=== PATIENT | male | born 1960 | race Caucasian/White ===

== ENCOUNTER → 2017-07-30 | Outpatient (CLI) | payer OTHER ==
[2016-06-28 12:22] VITALS: BMI 31.6
[~2017-07-30] MED LIST: ALB18R INH; ASPI81TA94 PO; ATOR10TA65 PO; BLOO-784 MC; DIPH0.5D12 IM; DOCU-416 PO; FLUT16SP19 NS; FLUT1DIS29 IH; GLIP-152 PO; LISI-351 PO; LISI-362 PO; LORA-629 PO; LOSA-57 PO; LOSA50TA72 PO; METF-410 PO; MONT10TA4 PO; NEED1DIS64 MC; OXYC-854 PO; PNEI IM; PRED-1 PO; TOBR5DRO43 OD; [UNRECOGNIZED DRUG - CODE] NS
== END ==
LOC: LAB 11:14
PROVIDERS: ATTEND Nurse Practitioner Family
DX: Z12.5 Encounter for screening for malignant neoplasm of prostate (principal); E11.9 Type 2 diabetes mellitus without complications; E78.5 Hyperlipidemia, unspecified; I10 Essential (primary) hypertension
CPT/HCPCS: 36415; 82040; 82247; 82310; 82374; 82435; 82565; 82947; 83036; 84075; 84132; 84153; 84155; 84295; 84443; 84450; 84460; 84520

== ENCOUNTER → 2018-01-13 | Outpatient (CLI) | payer OTHER ==
[2016-06-28 12:22] VITALS: BMI 31.6
[~2018-01-13] MED LIST changes: +AMLO-96 PO; +AMLO-99 PO; +CAR6.25 PO; +GLIM1TAB25 PO; +LOSA-54 PO; -METF-410 PO; +METF-411 PO
== END ==
LOC: RESP 19:38
PROVIDERS: ATTEND Nurse Practitioner Family
DX: G47.33 Obstructive sleep apnea (adult) (pediatric) (principal); G47.36 Sleep related hypoventilation in conditions classified elsewhere

== ENCOUNTER → 2018-01-26 | Outpatient (CLI) | payer OTHER ==
[2016-06-28 12:22] VITALS: BMI 31.6
[~2018-01-26] MED LIST changes: +OXYGENHOME INH
[2018-01-26 09:46] LABS: PLATELET COUNT, AUTOMATED 272 K/uL (150-450)
[2018-01-26 10:55] LABS: LDL CHOLESTEROL 55 mg/dl
== END ==
LOC: LAB 07:47
PROVIDERS: ATTEND Nurse Practitioner Family
DX: E11.65 Type 2 diabetes mellitus with hyperglycemia (principal); E78.5 Hyperlipidemia, unspecified; I10 Essential (primary) hypertension
CPT/HCPCS: 36415; 82040; 82247; 82310; 82374; 82435; 82465; 82565; 82947; 83036; 83718; 84075; 84132; 84155; 84295; 84443; 84450; 84460; 84478; 84520; 85025

== ENCOUNTER → 2018-08-04 | Outpatient (CLI) | payer OTHER ==
[2016-06-28 12:22] VITALS: BMI 31.6
[~2018-08-04] MED LIST changes: +AMLO-111 PO; +AMLO-113 PO; -AMLO-96 PO; -AMLO-99 PO; -LOSA50TA72 PO; +LOSA50TA80 PO; -METF-411 PO; +METF-450 PO; +PNEI IJ
== END ==
LOC: LAB 07:21
PROVIDERS: ATTEND Nurse Practitioner Family
DX: E11.9 Type 2 diabetes mellitus without complications (principal); I10 Essential (primary) hypertension
CPT/HCPCS: 36415; 82040; 82247; 82310; 82374; 82435; 82565; 82947; 83036; 84075; 84132; 84155; 84295; 84450; 84460; 84520

== ENCOUNTER 2018-12-11 08:18 | Emergency (ER) | payer OTHER ==
[2016-06-28 12:22] VITALS: Wt 97.5 kg
[~2018-12-11 08:18] MED LIST changes: -AMLO-111 PO; -AMLO-113 PO; +AMLO-125 PO; +AMLO-127 PO; -DIPH0.5D12 IM; +DIPH0.5S2 IM
--- NOTE | 2018-12-11 08:32 | ER Report ---
History and Physical Time Seen By MD: 08:25 Hx. of Stated Complaint: PATIENT REPORTS LOW BACK PAIN FOR 2 WEEKS. WORSE ON THE LEFT SIDE WITH NUMBNESS AND TINGLING HPI/ROS CHIEF COMPLAINT: Left-sided back and leg pain HISTORY OF PRESENT ILLNESS: Patient is a 58-year-old male who presents emergent department complaining of lower back pain that is worse with movement with radiation and numbness down the back of the left leg. Patient has a history of prior herniated lumbar disks. He has performed physical therapy in the past with improvement of symptoms. He states over the last 2 weeks however his symptoms have worsened. At work yesterday he states he had to sit down multiple times s econdary to pain. He has been treating his pain with ibuprofen with minimal effect. Patient denies any saddle anesthesia denies any burning or difficulty with urination. Denies blood in his urine. Denies any retention or incontinence of urine or stool. REVIEW OF SYSTEMS: Respiratory: No cough, no dyspnea. Cardiovascular: No chest pain, no palpitations. Gastrointestinal: No vomiting, no abdominal pain. Musculoskeletal: Lower left back pain Allergies: Coded Allergies: No Known Drug Allergies (Unverified , 12/23/16) Home Meds Active Scripts Methocarbamol (ROBAXIN-750) 750 Mg Tablet, 1500 MG PO TID, #21 TAB 0 Refills Prov:KAMRAN BLACKMON MD 12/11/18 Oxycodone Hcl/Acetaminophen (PERCOCET 5-325 MG TABLET) 1 Each Tablet, 1 EACH PO Q4H, #20 TAB 0 Refills Prov:KAMRAN BLACKMON MD 12/11/18 Fluticasone/Salmeterol (ADVAIR 500-50 DISKUS) 1 Each Disk.w.dev, 1 EACH IH BID, #1 INHALER 0 Refills Prov:PAT DOMINGUEZ APRNC 12/10/18 Albuterol Sulfate (VENTOLIN HFA) 18 Gm Inh, 2 PUFF INH TID PRN for COUGH, #1 INH 0 Refills Prov:PAT DOMINGUEZ APRNC 11/30/18 Glimepiride (GLIMEPIRIDE) 1 Mg Tablet, 1 TAB PO QDAY, #90 TAB 3 Refills Prov:PAT DOMINGUEZ APRNC 11/12/18 Metformin Hcl (METFORMIN HCL) 500 Mg Tablet, 2 TAB PO BID, #360 TAB 2 Refills Prov:PAT DOMINGUEZ APRNP-C 07/22/18 Montelukast Sodium (MONTELUKAST SODIUM) 10 Mg Tablet, 1 TAB PO QHS, #90 TAB 0 Refills Prov:PAT DOMINGUEZ APRN REEL OPERATOR-C 06/21/18 Losartan/Hydrochlorothiazide (LOSARTAN-HCTZ 100-25 MG TAB) 1 Each Tablet, 1 EACH PO QDAY, #90 TAB 3 Refills Prov:PAT DOMINGUEZ APRN REEL OPERATOR-C 05/03/18 Fluticasone Prop 50 Mcg Ns (FLONASE 50 MCG NS) 16 Gm [place].susp, 1 SPRAY NS BID, #3 BOT 2 Refills Prov:PAT DOMINGUEZ APRNP-C 03/18/18 Atorvastatin Calcium (ATORVASTATIN CALCIUM) 10 Mg Tablet, 1 TAB PO QHS, #90 TAB 2 Refills Prov:PAT DOMINGUEZ APRNP-C 03/15/18 Carvedilol (CARVEDILOL) 6.25 Mg Tab, 1 TAB PO BID, #180 TAB 3 Refills Prov:PAT DOMINGUEZ APRNP-C 02/01/18 Oxygen (OXYGEN) Inha, 2 L INH QHS, #2 L 0 Refills Prov:PAT DOMINGUEZ APRN REEL OPERATOR-C 01/26/18 Blood Sugar Diagnostic (RELION CONFIRM-MICRO) 1 Each Strip, 1 STRIP MC BID, #100 STRIP 11 Refills Prov:PAT DOMINGUEZ APRN REEL OPERATOR-C 01/03/15 Reported Medications Oxymetazoline Hcl (OXYMETAZOLINE HCL) 15 Ml [place], 15 ML NS PRN, SPRAY 06/23/16 Loratadine (LORATADINE) 10 Mg Tablet, 10 MG PO DAILY 06/23/16 Aspirin (ASPIRIN) 81 Mg Tab.chew, 81 MG PO QDAY, TAB.CHEW 12/30/14 Past Medical/Surgical History Medical history for hypertension, hypercholesterol and type II diabetes. Hx Smoking: No Smoking Status: Never Smoker Exposure to Second Hand Smoke?: Yes ( SMOKES) Hx Substance Use Disorder: No Hx Alcohol Use: Yes Constitutional Vital Sign - Last 24 Hours 12/11/18 12/11/18 08:21 09:17 Temp 98.0 Pulse 84 82 Resp 16 16 B/P (MAP) 163/99 133/87 (102) Pulse Ox 90 93 O2 Delivery Room Air Room Air Physical Exam General appearance: alert no distress. Back: Thoracic spine has no spinal or paraspinal tenderness to palpation. Lumbar spine has no spinal tenderness moderateparaspinal tenderness Gastroinal: Abdomen is soft, non tender, no masses.. Skin: No lesions and no rashes. Vascular: Normal capillary refill and pulses to feet. Neurological: Motor function: leg strength normal and symmetric for both legs Sensory function: normal for all leg dermatomes. Straight leg raise negative to 70 degrees. Reflexes normal bilaterally on legs. Medical Decision Making EKG/Imaging Imaging FACILITY: [facility] PATIENT NAME: Shade Perry : 1960 MR: [id number] V: [id number] EXAM DATE: ORDERING PHYSICIAN: KAMRAN BLACKMON TECHNOLOGIST: Location: [facility] [place] Patient: Shade Perry : 1960 Visit/Account:[id number] Date of Sevice: 12/11/2018 Lumbar spine Indication: Back pain. Comparison: None available FINDINGS: 2 views of the lumbar spine were obtained. There are 5 lumbar type vertebral bodies. There is no acute osseous or acute alignment abnormality. There is moderate to severe diffuse multilevel degenerative disc space disease. Disc space narrowing is greatest at L2-3 and L5-S1 where there is severe disc space narrowing, gas phenomenon within the disc space subchondral sclerosis and osteophyte formation. No spondylolisthesis is identified. The vertebral body heights appear well-maintained. IMPRESSION: 1. Moderate to severe diffuse multilevel degenerative disc space disease as described, no acute abnormality noted Report Dictated By: Harsha Alvares at 12/11/2018 8:53 AM Report E-Signed By: Harsha Alvares at 12/11/2018 8:54 AM WSN:[id number] ED Course/Re-evaluation ED Course Plan at this time will be to perform x-ray of the lumbar spine. The symptoms and physical exam consistent with sciatica. We will treat for pain we'll also refer to orthopedics for further evaluation and management. Decision to Disposition Date: December 11, 2018 Decision to Disposition Time: 09:05 Depart Departure Latest Vital Signs Vital Signs Date Time Temp Pulse Resp B/P (MAP) Pulse Ox O2 Delivery O2 Flow Rate FiO2 12/11/18 09:17 82 16 133/87 (102) 93 Room Air 12/11/18 08:21 98.0 Impression: Primary Impression: Sciatic leg pain Additional Impression: Sciatica associated with disorder of lumbar spine Condition: Improved Disposition: HOME OR SELF-CARE Referrals: PAT DOMINGUEZ APRN REEL OPERATOR-C (PCP) [facility] New Scripts Methocarbamol (ROBAXIN-750) 750 Mg Tablet 1500 MG PO TID, #21 TAB 0 Refills Prov: KAMRAN BLACKMON MD 12/11/18 Oxycodone Hcl/Acetaminophen (PERCOCET 5-325 MG TABLET) 1 Each Tablet 1 EACH PO Q4H, #20 TAB 0 Refills Prov: KAMRAN BLACKMON MD 12/11/18 Departure Forms: ER Transition Record, Medications Reconciliation, Off Work/School Form, School or Work Release?: Work Number of days to be released: 2 Patient Portal Information Patient Instructions: Sciatica (ED) Problem Qualifiers KAMRAN BLACKMON MD December 11, 2018 08:32
--- NOTE | 2018-12-11 08:58 | RADIOLOGY IMAGING REPORT ---
FACILITY: [facility] PATIENT NAME: Shade Perry : 1960 MR: [id number] V: [id number] EXAM DATE: ORDERING PHYSICIAN: KAMRAN BLACKMON TECHNOLOGIST: Location: [facility] [place] Patient: Shade Perry : 1960 Visit/Account:[id number] Date of Sevice: 12/11/2018 Lumbar spine Indication: Back pain. Comparison: None available FINDINGS: 2 views of the lumbar spine were obtained. There are 5 lumbar type vertebral bodies. There is no acute osseous or acute alignment abnormality. There is moderate to severe diffuse multilevel degenerative disc space disease. Disc space narrowing is greatest at L2-3 and L5-S1 where there is severe disc space narrowing, gas phenomenon within the d isc space subchondral sclerosis and osteophyte formation. No spondylolisthesis is identified. The vertebral body heights appear well-maintained. IMPRESSION: 1. Moderate to severe diffuse multilevel degenerative disc space disease as described, no acute abnor mality noted Report Dictated By: Harsha Alvares at 12/11/2018 8:53 AM Report E-Signed By: Harsha Alvares at 12/11/2018 8:54 AM WSN:[id number]
[2018-12-11] MEDS ORDERED: METH-543 PO (09:08)
[2018-12-11] MEDS ORDERED: OXYC-865 PO (09:08)
[2018-12-11 09:17] VITALS: BP 133/87
[2018-12-13] MEDS ORDERED: METH4TAB66 PO (09:21)
== END 2018-12-11 09:18 | disposition home or self-care (01) ==
LOC: ER 08:21
DX: M54.32 Sciatica, left side (principal); M53.86 Other specified dorsopathies, lumbar region
CPT/HCPCS: 72100; 99283

== ENCOUNTER → 2018-12-15 | Outpatient (CLI) | payer OTHER ==
[2016-06-28 12:22] VITALS: BMI 31.6
[~2018-12-15] MED LIST changes: +METH-543 PO; +METH4TAB66 PO; +OXYC-865 PO
--- NOTE | 2018-12-15 10:05 | RADIOLOGY IMAGING REPORT ---
FACILITY: [facility] [place] PATIENT NAME: Shade Perry : 1960 MR: [id number] V: [id number] EXAM DATE: ORDERING PHYSICIAN: PAT DOMINGUEZ TECHNOLOGIST: Location: [facility] [place] Patient: Shade Perry : 1960 Visit/Account:[id number] Date of Sevice: 12/15/2018 EXAMINATION: MRI lumbar spine without IV contrast HISTORY: Low back pain with left-sided sciatica. COMPARISON: Lumbar spine radiographs from 12/11/2018. TECHNIQUE: Multi-planar, multi-sequence lumbar spine MRI was performed without intravenous contrast administration. FINDINGS: Alignment: Grade 1 retrolisthesis at L5-S1 measuring 4 mm. Vertebral marrow signal: Sclerotic degenerative endplate changes at L5-S1 and fatty degenerative endp late changes at L2-3. Distal thoracic cord: Negative. Conus: negative, terminates at T12-L1. Cauda equina: Negative. Paravertebral soft tissues: Negative. Visualized abdominal and pelvic structures: Negative. Disc spaces: There is disc desiccation of the visualized spine. Lower thoracic spine: Normal. L1-2: Minimal concentric disc bulge without significant central canal or foraminal stenosis. L2-3: Moderate disc space narrowing with an anterior bone spur, mild concentric disc bulge and bilate ral facet hypertrophy. Mildly prominent posterior epidural fat. Mild bilateral lateral recess stenosi s without significant central canal or foraminal stenosis. L3-4: Moderate concentric disc bulge with a prominent superimposed anterior disc extrusion. Small tomer ular fissure. Mild facet hypertrophy and ligamentum flavum laxity and mildly prominent posterior epid ural fat. Mild central canal stenosis, mild bilateral lateral recess stenosis, and mild bilateral for aminal stenosis, left greater than right. L4-5: Mild concentric disc bulge with a superimposed far left lateral disc protrusion with annular fi ssure. Bilateral facet hypertrophy and ligamentum flavum laxity with trace effusions in the facet raad nts. Prominent posterior epidural fat. Mild bilateral lateral recess stenosis and moderate to severe left foraminal stenosis with mild mass effect on the foraminal left L4 nerve root. No significant janes tral canal stenosis. L5-S1: Mild disc space narrowing with a broad-based disc extrusion with annular fissure, bilateral fa cet hypertrophy and ligamentum flavum laxity. Prominent epidural fat around the thecal sac. Moderate central canal stenosis caused by the epidural fat, mild left and moderate right lateral recess stenos is, and severe bilateral foraminal stenosis. IMPRESSION: 1. Far left lateral disc protrusion at L4-5 causes moderate to severe left foraminal stenosis and mas s effect on the foraminal left L4 nerve root. 2. Degenerative disease and facet arthropathy is otherwise worst at L5-S1 where there is moderate spi nal stenosis caused by epidural lipomatosis, and severe bilateral foraminal stenosis. Please see the findings for description of individual level disease. 3. Annular fissures at L3-4, L4-5 and L5-S1. 4. Grade 1 degenerative retrolisthesis at L5-S1. Report Dictated By: Gracia Daniels MD at 12/15/2018 9:50 AM Report E-Signed By: Gracia Daniels MD at 12/15/2018 10:00 AM WSN:[id number]
== END ==
LOC: MRI 01:07
PROVIDERS: ATTEND Nurse Practitioner Family
DX: M54.42 Lumbago with sciatica, left side (principal); M48.07 Spinal stenosis, lumbosacral region; M46.96 Unspecified inflammatory spondylopathy, lumbar region; M51.36 Other intervertebral disc degeneration, lumbar region
CPT/HCPCS: 72148

== ENCOUNTER → 2018-12-21 | Outpatient (REF) ==
[2016-06-28 12:22] VITALS: BMI 31.6
[~2018-12-21] MED LIST changes: +NAPR500T31 PO
[2018-12-21 14:04] LABS: LDL CHOLESTEROL 50 mg/dl
== END ==
DX: Z02.9 Encounter for administrative examinations, unspecified (principal)

== ENCOUNTER → 2018-12-21 | Outpatient (CLI) | payer OTHER ==
[2016-06-28 12:22] VITALS: BMI 31.6
== END ==
LOC: LAB 13:35
PROVIDERS: ATTEND Nurse Practitioner Family
DX: E11.9 Type 2 diabetes mellitus without complications (principal)
CPT/HCPCS: 83036

== ENCOUNTER 2019-02-03 07:00 | Outpatient (RCR) | payer OTHER ==
[2016-06-28 12:22] VITALS: BMI 31.6
--- NOTE | 2018-12-23 15:16 | PT INITIAL EVALUATION ---
MEDICAL DIAGNOSIS: low back pain TREATMENT DIAGNOSIS: same DATE OF ONSET: 11/22/18 SUBJECTIVE: Shade Perry presents to physical therapy with low back pain that has gotten worse approximately one month ago without any mechanism of injury. He reports that he has pain radiating down his L LE from his low back region to his L foot. Recently, he feels like the low back pain is slightly improving. HE reports that he is unable to perform his daily work; therefore, he is unable to work as a result. He reports that the pain is worse with standing and walking. He then reports that the pain is better with bending and sitting. He rates his worst pain to be 6-7/10. He reports his best pain to be 0/10 while he is typically sitting. He reports that if he standing and walking the pain gets pretty intense and requires him to sit for a few minutes and as a result the pain will decrease. He reports that he had a MRI last week. He reports that his sleep has been uninterrupted for the most part. He denies any unexplained weight loss or night pain or changes in bowel or bladder. Pain location is L4-5 fact with radiating pain down his L LE to foot. Pain scale is 3 on a ten point pain scale. 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 ROM: Trunk AROM: flexion: minimal restriction and muscular end feel. extension: minimal restriction with muscular end feel. R side gliding: NIL with muscular end feel. L side gliding: moderate restriction with painful end feel Strength: L hip flexion: 4/5. R hip flexion: 4+/5. B hip abduction, extension, B knee extension and flexion, and B ankle DF: 4+/5. B ankle PF: 5/5 Sensation: Intact L2-S1 B Special Tests: Repeated extension: increased pain during and peripheralized the pain following. Repeated flexion: muscular stretch during and reduced pain and increased trunk AROM as a result. Mobility: Independent Gait: He demonstrated antalgic gait mechanics, increased lateral trunk movements, decreased velocity, and decreased pelvic mobility. Balance: Will test in the future ASSESSMENT: Luisito will benefit from skilled physical therapy addressing the listed impairments to improve function and QOL. His provisional classification is anterior derangement that responded to flexion based principles and if continues to maintain gains his prognosis will be good to excellent. Short Term Goals 2 weeks: Pt will demonstrate directional preference and demonstrate centralized pain to improve function and QOL. 4 weeks: If pt demonstrates directional preference, she will demonstrate centralized pain and increased trunk AROM in all direction to improve function and QOL. 6 weeks: If pt demonstrates directional preference, she will demonstrate abolished pain and return to prior level of function to improve QOL. Patient's Goals get back to work as soon as possible PLAN: Patient to be seen for Manual Therapy/STM/MET Strengthening/condition Range of Motion Spinal Stabilization Work Hardening/Cond Stretching Neuromuscular Re-ed Closed Chain Program Posture/Body mechanics Gait Trg/Balance Trg Home Exercise Program Therapeutic Activities 2x/Week for 6 Weeks If you have any questions, comments, or concerns about this report or plan, please contact me at . Thank you, Russ Lau, PT, DPT DANIELD
--- NOTE | 2019-01-20 07:43 | PT PLAN OF CARE ---
Physician: Parmjit Lucas MD Patient is being seen: 2x/week Therapist: Russ Lau, PT, DPT Medical Diagnosis: low back pain Treatment Diagnosis: same Date of Onset: 11/22/18 Date of Initial Evaluation: 12/22/18 Date patient was last seen: 01/20/19 Number of treatments: 10 Number of cancellations/No shows: 0 INTERVENTIONS: Manual Therapy/STM/MET Strengthening/condition Range of Motion Spinal Stabilization Work Hardening/Cond Stretching Neuromuscular Re-ed Closed Chain Program Posture/Body mechanics Gait Trg/Balance Trg Home Exercise Program Therapeutic Activities GOALS: 2 weeks: Pt will demonstrate directional preference and demonstrate centralized pain to improve function and QOL. 4 weeks: If pt demonstrates directional preference, she will demonstrate centralized pain and increased trunk AROM in all direction to improve function and QOL. 6 weeks: If pt demonstrates directional preference, she will demonstrate abolished pain and return to prior level of function to improve QOL. PATIENT'S GOAL: get back to work as soon as possible Status of Patient's Goals: progressing Patient Compliance: good Prognosis: Good Reasons for continuing therapy: This is progress note for Shade Perry. He reports that he feels like he is improving but not as fast as he would like. He reports that he feels like he can stand for 10-15 before the pain comes on. He reports that he feels like he can walk for about 20 minutes before the pain comes on. He reports that if he sits he does not have any pain. He reports that if the pain comes on in his L buttock it takes 1-2 minutes to go away once he sits. He reports that he feels like his motion is doing well and does not have anymore pain or restrictions with any of his trunk motions. He reports that he feels like he needs to be able to stand or walk for about an hour without any pain before he can return to work. He demonstrates improvements such as increased trunk AROM from moderately restricted to NIL restricted in all directions with normal end feels, increased B LE strength as his L LE are equal strength compared to his R LE, and increased gait mechanics (abolished antalgic gait). If ambulated more than 20 minutes, I imagine we would see the antalgic gait return. He continues to respond to his specific exercise; therefore, I feel like his prognosis to return to prior level of function continues to be good. He is independent with his specific exercise home exercise and it shows that he has been performing it as prescribed. Posture: He demonstrated B rounded shoulders, increased thoracic kyphosis, and decreased lumbar lordosis. ROM: Trunk AROM: flexion: minimal restriction and muscular end feel. extension: minimal restriction with muscular end feel. R side gliding: NIL with muscular end feel. L side gliding: moderate restriction with painful end feel Strength: L hip flexion: 4+/5. R hip flexion: 4+/5. B hip abduction, extension, B knee extension and flexion, and B ankle DF: 4+/5. B ankle PF: 5/5 Special Tests: Repeated extension: increased pain during and peripheralized the pain following. Repeated flexion: muscular stretch during and peripheralized pain. Repeated extension with R lateral: stretch during and abolished the pain following with increased trunk AROM with normalized end feels. Mobility: Independent MTDD
[~2019-02-03 07:00] MED LIST changes: +CARV12.578 PO; +GABA-549 PO; +VARI50KI IM
[2019-02-04] MEDS ORDERED: GABA-549 PO (09:52)
[2019-02-04] MEDS ORDERED: Return to Work (09:58)
--- NOTE | 2019-02-15 16:13 | PT PLAN OF CARE ---
Physician: Parmjit Lucas MD Patient is being seen: 2x/week Therapist: Russ Lau, PT, DPT Medical Diagnosis: low back pain Treatment Diagnosis: same Date of Onset: 11/22/18 Date of Initial Evaluation: 12/22/18 Date patient was last seen: 02/03/19 Number of treatments: 13 Number of cancellations/No shows: 0 INTERVENTIONS: Manual Therapy/STM/MET Strengthening/condition Range of Motion Spinal Stabilization Work Hardening/Cond Stretching Neuromuscular Re-ed Closed Chain Program Posture/Body mechanics Gait Trg/Balance Trg Home Exercise Program Therapeutic Activities GOALS: 2 weeks: Pt will demonstrate directional preference and demonstrate centralized pain to improve function and QOL. MET 4 weeks: If pt demonstrates directional preference, she will demonstrate centralized pain and increased trunk AROM in all direction to improve function and QOL. MET 6 weeks: If pt demonstrates directional preference, she will demonstrate abolished pain and return to prior level of function to improve QOL.MET PATIENT'S GOAL: get back to work as soon as possible: MET Status of Patient's Goals: MET Patient Compliance: good Prognosis: Good Reasons for continuing therapy: This is discharge note for Shade Perry. He reports that he is doing well. He denies any pain. He reports that he has been cleared to return to work and will more than likely return to work on Thursday. He demonstrated continually increase in trunk AROM in all directions with normalized end feels and continues to be independent with his home exercise program and prevention methods with improvements in lifting mechanics and core strength. He is independent with his home exercise program. He is educated on how to prevent reoccurrences and I will do a write up to improve working conditions to reduced related injuries to him or other staff based on work site evaluation. As a result, he will be discharged from PT to [facility]. Posture: He demonstrated B rounded shoulders, increased thoracic kyphosis, and decreased lumbar lordosis. ROM: Trunk AROM: flexion: NIL with muscular end feel. extension: NIL with muscular end feel. R side gliding: NIL with muscular end feel. L side gliding: NIL with muscular end feel Strength: L hip flexion: 4+/5. R hip flexion: 4+/5. B hip abduction, extension, B knee extension and flexion, and B ankle DF: 4+/5. B ankle PF: 5/5 If you have any questions, please contact me at [phone]. Thank you, Russ Lau, PT, DPT MTDD
== END 2019-02-03 18:00 | disposition home or self-care (01) ==
LOC: PT 07:00
PROVIDERS: ATTEND Orthopaedic Surgery
DX: M54.5 Low back pain (principal)
CPT/HCPCS: 97161